=== PATIENT | female | born 1980 | race Two or more races ===

== ENCOUNTER 2018-09-13 07:19 | Emergency (ER) | payer MEDICAID ==
[~2018-09-13] VITALS: Ht 160 cm; Wt 4.4 kg
[2018-09-13 07:30] VITALS: BP 157/80
== END 2018-09-13 08:35 | disposition home or self-care (01) ==
LOC: ER 07:19
DX: S93.601A Unspecified sprain of right foot, initial encounter (principal); X50.1XXA Overexertion from prolonged static or awkward postures, initial encounter; Y93.89 Activity, other specified; Y99.8 Other external cause status; Y92.89 Other specified places as the place of occurrence of the external cause
CPT/HCPCS: 73600; 73630